=== PATIENT | female | born 1985 ===

== ENCOUNTER → 2017-01-01 | Outpatient (CLI) | payer BC ==
[~2017-01-01] MED LIST: CEFD300C PO
[2017-01-01 12:31] VITALS: BP 125/85
--- NOTE | 2017-01-01 12:31 | Urgent Care T Sheet Gen (E) ---
Intake General Temperature (Fahrenheit): 98.1 Pulse: 67 Blood Pressure Systolic: 125 Blood Pressure Diastolic: 85 Respirations: 20 SPO2: 99 Description of Symptoms Patient presents with illness since Thursday. Started as CARDONA and nasal congestion. Noted mild PND. Had been using Netti pot and Mucinex. Last night however noticed severe pain and fullness in the L ear. No drainage. No fever. Does have allergies this time of year however hasn't been taking her usual Claritin as she and her are trying to conceive and she didn't want to have a lot of medication in her system. Respiratory Constitutional Symptoms: No syptoms reported EENTM: Ear painNo Ear discharge, Nose Congestion Throat pain Respiratory: No symptoms reported Cardiovascular: No symptoms reported All Other Systems Reviewed Remaining Systems: All other systems reviewed with negative findings Physical Exam Physical Exam General Appearance: WD/WN No apparent distress Eyes, Ears, Nose, Throat Ex: TM abnormal (L) (very red and bulging. no rupture) Pharyngeal erythema (cobblestone appearance with PND) Other (very red and swollen nasal turbinates. pain with palpation over frontal sinuses) Neck Exam: SuppleNo Lymphadenopathy Respiratory Exam: Lungs clear Normal breath sounds Cardiovascular Exam: Regular rate, rhythm Departure Urgent Care Impression Impression: Primary Impression: Left otitis media Qualified Code: H66.002 - Acute suppurative otitis media without spontaneous rupture of ear drum, left ear Additional Impressions: Sinusitis Qualified Code: J01.10 - Acute frontal sinusitis, unspecified Seasonal allergies Qualified Code: J30.1 - Allergic rhinitis due to pollen Departure Disposition: 01 HOME OR SELF-CARE Condition: Stable Referrals: HILARIO LINDSAY APRN (PCP) Additional Instructions: I have started the patient on Omnicef for treatment of her sinusitis and LOM. We looked up medications in my drug book to verify safety during . Patient is trying to conceive and wants to be safe. Claritin and Flonase are both safe to use during and I encouraged her to resume since this is typically her bad time for allergies Rest. Fluids Tylenol as needed for ear pain Return if no better Patient understands DC instructions. All questions were answered. Scripts Cefdinir 300 Mg [id number] Mg PO BID #14 CAP Prov:TOY SPANGLER 01/01/17 End of report . TOY SPANGLER January 01, 2017 12:31
== END ==
LOC: MHUC 12:10
PROVIDERS: ATTEND Physician Assistant
DX: H66.002 Acute suppurative otitis media without spontaneous rupture of ear drum, left ear (principal); J01.10 Acute frontal sinusitis, unspecified; J30.1 Allergic rhinitis due to pollen
CPT/HCPCS: 99213